=== PATIENT | female | born 1945 | race Caucasian/White ===

== ENCOUNTER 2018-01-07 22:26 | Emergency (ER) | payer OTHER ==
[~2018-01-07] VITALS: Ht 157.5 cm; Wt 52.2 kg
[2018-01-07] MEDS ORDERED: ATORVASTATIN CA20 MG (22:51)
[2018-01-07] MEDS ORDERED: BYSTOLIC5 MG (22:51)
[2018-01-07] MEDS ORDERED: LOSARTAN POTASS25 MG (22:51)
[2018-01-07] MEDS ORDERED: PLAVIX75 MG (22:51)
[2018-01-07] MEDS ORDERED: ZETIA10 MG (22:52)
[2018-01-08] MEDS ORDERED: ULTRACET PO (03:03)
== END 2018-01-08 03:35 | disposition home or self-care (01) ==
LOC: ER 22:26
DX: S00.83XA Contusion of other part of head, initial encounter (principal); S60.221A Contusion of right hand, initial encounter; S60.211A Contusion of right wrist, initial encounter; R68.84 Jaw pain; W01.198A Fall on same level from slipping, tripping and stumbling with subsequent striking against other object, initial encounter; Y93.01 Activity, walking, marching and hiking; Y92.128 Other place in nursing home as the place of occurrence of the external cause; Y99.8 Other external cause status

== ENCOUNTER 2021-04-19 16:29 | Emergency (ER) | payer OTHER ==
[~2021-04-19] VITALS: Ht 157.5 cm; Wt 54.0 kg
[~2021-04-19 16:29] MED LIST: ATORVASTATIN CA20 MG; BYSTOLIC5 MG; LOSARTAN POTASS25 MG; PLAVIX75 MG; ULTRACET PO; ZETIA10 MG
== END 2021-04-19 20:39 | disposition home or self-care (01) ==
LOC: ER 16:29
DX: S60.041A Contusion of right ring finger without damage to nail, initial encounter (principal); X58.XXXA Exposure to other specified factors, initial encounter; Y93.89 Activity, other specified; Y92.89 Other specified places as the place of occurrence of the external cause; Y99.8 Other external cause status

== ENCOUNTER → 2021-12-19 | Outpatient (CLI) | payer OTHER | END | disposition home or self-care (01) | LOC: NUCLEAR 11-29 13:00 | PROVIDERS: ATTEND Obstetrics & Gynecology | DX: M81.0 Age-related osteoporosis without current pathological fracture (principal); M85.80 Other specified disorders of bone density and structure, unspecified site ==